=== PATIENT | male | born 1940 | race Caucasian/White ===

== ENCOUNTER 2016-09-20 19:16 | Emergency (ER) | payer MEDICARE, OTHER ==
[2016-09-20 19:27] VITALS: BP 135/69
--- NOTE | 2016-09-20 20:20 | ED Physician Documentation ---
History of Present Illness - Stated complaint Stated Complaint: LT LE PAIN - Chief complaint Chief Complaint: Ext Problem - History obtained from History obtained from: Patient - History of Present Illness Timing: Enter time (17:30), Today Pain level max: 8 (initially) Pain level now: 0 (at rest) Radiates to: no radiation Improved by: rest Worsened by: weight-bearing - Additonal information Additional information: sudden onset left leg pain proximal to knee, onset while standing in kitchen but without specific inciting event. 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 denies: Back pain, Joint pain, Extremity swelling, Joint swelling Neurologic: denies: Focal weakness, Numbness PD PAST MEDICAL HISTORY - Past Medical History Cardiovascular: Deep vein thrombosis, Other Respiratory: Asthma, Other Neuro: None Endocrine/Autoimmune: None GI: None : Other HEENT: None Psych: Claustrophobia Musculoskeletal: Osteoarthritis Derm: None - Past Surgical History Past Surgical History: Yes General: Appendectomy, Colonoscopy Ortho: Hip replacement HEENT: Tonsil/Adenoidectomy - Present Medications Home Medications: Ambulatory Orders Medication Instructions Recorded Confirmed Fluticasone 44 Mcg [Flovent] 2 puffs INH BID 12/07/12 04/01/15 Ipratropium/Albuterol Inhaler 1 puffs INH QID PRN 12/07/12 04/01/15 [Combivent Inhaler] Montelukast Sodium [Singulair] 10 mg PO DAILY 12/07/12 04/01/15 - Allergies Allergies/Adverse Reactions: Allergies Allergy/AdvReac Type Severity Reaction Status Date / Time No Known Drug Allergies Allergy Verified 09/20/16 19:27 - Social History Does the pt smoke?: No Smoking Status: Never smoker Does the pt drink ETOH?: Yes Does the pt have substance abuse?: No - Immunizations Immunizations are current?: Yes - POLST Patient has POLST: No PD ED PE NORMAL - Vitals Vital signs reviewed: Yes - General General: Alert and oriented X 3, No acute distress, Well developed/nourished - Derm Derm: Normal color, Warm and dry, No rash - Extremities Extremities: No tenderness to palpate, Normal ROM s pain, No edema, No calf tenderness / cord, Other (2+ left DP and PT pulses. Brisk capillary refill left toes with LTS intact, normal tactile temperature of the left foot. Left leg including calf, thigh, and knee, are without tenderness, erythema, or swelling. FROM left knee without discomfort or difficulty. ) - Neuro Neuro: No motor deficit (5/5 strength left dorsi/plantar flexion and left knee extension/ flexion), No sensory deficit Results - Vitals Vitals: Vital Signs - 24 hr 09/20/16 19:23 Temperature 36.8 C Heart Rate 65 Respiratory 14 Rate Blood Pressure 135/69 H O2 Saturation 98 Oxygen O2 Source [] Room air O2 Source Room air - Rads (name of study) LLE venous doppler US Radiology: Prelim report reviewed, See rad report PD MEDICAL DECISION MAKING - ED course Complexity details: reviewed old records, reviewed results, re-evaluated patient , considered differential, d/w patient ED course: declined pain medication, both in ED and as rx Departure - Departure Disposition: 01 Home, Self Care Clinical Impression: Pain of lower extremity Condition: Good Instructions: ED Acute Pain [facility] Follow-Up: AVERY COLUNGA MD [Primary Care Provider] - Within 3 Days Discharge Date/Time: 09/20/16 22:10
--- NOTE | 2016-09-20 21:47 | Ultrasound Preliminary Report ---
Exam: US Duplex Ext Veins Left IMPRESSION: No evidence for deep venous thrombosis. [facility] SITE ID: [id number]
--- NOTE | 2016-09-20 23:38 | Ultrasound Report ---
EXAM: LEFT LOWER EXTREMITY VENOUS ULTRASOUND EXAM DATE: 09/20/2016 09:32 PM. CLINICAL HISTORY: Left lower extremity pain, history of DVT (right lower extremity). COMPARISON: None. TECHNIQUE: Real-time sonographic vascular imaging was performed by the bmx rider through the lower extremity utilizing both color-flow and Doppler spectral analysis. Multiple workforce services representative static mara ges were saved for review. FINDINGS: Common Femoral Vein (CFV): Normal. CFV-GSV Junction: Normal. Profunda Femoral Vein (PFV): Normal. Femoral Vein (FV) Prox: Normal. Femoral Vein (FV) Mid: Normal. Femoral Vein (FV) Dist: Normal. Popliteal Vein: Normal. Posterior Tibial Veins: Normal. Peroneal Veins: Normal. Contralateral Side CFV: Normal. Other: None. IMPRESSION: No evidence for deep venous thrombosis. [facility] Referring Provider Line: [phone] SITE ID: [id number]
== END 2016-09-20 22:10 | disposition home or self-care (01) ==
LOC: ED 19:16
DX: M79.605 Pain in left leg (principal); Z86.718 Personal history of other venous thrombosis and embolism; J45.909 Unspecified asthma, uncomplicated; M19.90 Unspecified osteoarthritis, unspecified site
CPT/HCPCS: 99283

== ENCOUNTER 2017-02-03 08:00 | Outpatient (CLI) | payer MEDICARE, OTHER ==
[2017-02-03 16:06] LABS: BASOPHILS % (AUTO) 0.7 %; EOSINOPHILS # (AUTO) 0.1 10^3/uL (0.0-0.7); EOSINOPHILS % (AUTO) 2.1 %; HCT - HEMATOCRIT 46.2 % (42.0-52.0); HGB - HEMOGLOBIN 15.4 g/dL (14.0-18.0); LYMPHOCYTES % (AUTO) 30.4 %; MEAN CORPUSCULAR HEMOGLOBIN 30.5 pg (27.0-31.0); MEAN CORPUSCULAR HGB CONC 33.4 g/dL (32.0-36.0); MEAN CORPUSCULAR VOLUME 91.3 fL (80.0-94.0); MEAN PLATELET VOLUME 9.4 fL (7.4-11.4); MONOCYTES # (AUTO) 0.6 10^3/uL (0.0-1.0); MONOCYTES % (AUTO) 8.7 %; NEUTROPHILS # (AUTO) 3.9 10^3/uL (1.5-6.6); NEUTROPHILS % (AUTO) 58.1 %; NUCLEATED RED BLOOD CELLS AUTO 0.1 /100WBC; RED BLOOD COUNT 5.06 10^6/uL (4.70-6.10); RED CELL DISTRIBUTION WIDTH 14.2 % (12.0-15.0); UNCORRECTED WHITE BLOOD COUNT 6.7 x10^3/uL; WHITE BLOOD COUNT 6.7 x10^3/uL (4.8-10.8)
[2017-02-03 17:02] LABS: ALBUMIN/GLOBULIN RATIO 1.5 (1.0-2.2); BILIRUBIN,TOTAL 0.8 mg/dL (0.2-1.0); BUN - BLOOD UREA NITROGEN 26 mg/dL (6-20); CALCIUM 9.8 mg/dL (8.5-10.3); CARBON DIOXIDE - CO2 25 mmol/L (21-32); CHLORIDE 107 mmol/L (101-111); CHOL/HDL RATIO 3.5 (<5.0); CHOLESTEROL 186 mg/dL; CREATININE 0.9 mg/dL (0.6-1.2); GFR - MDRD 82 (>89); GLUCOSE 101 mg/dL (70-100); HDL CHOLESTEROL 53 mg/dL; LDL/HDL RATIO 2.2 (<3.6); POTASSIUM 4.3 mmol/L (3.5-5.0); SODIUM 138 mmol/L (135-145); TRIGLYCERIDES 90 mg/dL; VLDL CHOLESTEROL 18 mg/dL
== END 2017-02-03 08:01 | disposition home or self-care (01) ==
LOC: LAB.WCP 08:00
PROVIDERS: ATTEND Family Medicine
DX: Z00.00 Encounter for general adult medical examination without abnormal findings (principal); Z13.220 Encounter for screening for lipoid disorders; Z79.899 Other long term (current) drug therapy; Z12.5 Encounter for screening for malignant neoplasm of prostate
CPT/HCPCS: 36415; 80053; 80061; 85025; G0103; 84153

== ENCOUNTER 2017-03-11 12:41 | Emergency (ER) | payer MEDICARE, OTHER ==
[2017-03-11 14:01] LABS: BASOPHILS # (AUTO) 0.1 10^3/uL (0.0-0.1); BASOPHILS % (AUTO) 0.7 %; EOSINOPHILS % (AUTO) 0.6 %; LYMPHOCYTES # (AUTO) 1.9 10^3/uL (1.5-3.5); LYMPHOCYTES % (AUTO) 22.6 %; MEAN CORPUSCULAR HEMOGLOBIN 30.7 pg (27.0-31.0); MEAN CORPUSCULAR HGB CONC 34.2 g/dL (32.0-36.0); MEAN CORPUSCULAR VOLUME 89.7 fL (80.0-94.0); MEAN PLATELET VOLUME 8.5 fL (7.4-11.4); MONOCYTES % (AUTO) 12.5 %; NEUTROPHILS # (AUTO) 5.3 10^3/uL (1.5-6.6); NEUTROPHILS % (AUTO) 63.6 %; PLT - PLATELET COUNT 188 10^3/uL (130-450); RED BLOOD COUNT 5.52 10^6/uL (4.70-6.10); RED CELL DISTRIBUTION WIDTH 14.2 % (12.0-15.0); WHITE BLOOD COUNT 8.3 x10^3/uL (4.8-10.8)
[2017-03-11 14:16] LABS: ALBUMIN 4.4 g/dL (3.2-5.5); ALBUMIN/GLOBULIN RATIO 1.4 (1.0-2.2); BILIRUBIN,TOTAL 0.7 mg/dL (0.2-1.0); CALCIUM 9.8 mg/dL (8.5-10.3); TOTAL PROTEIN 7.6 g/dL (6.7-8.2)
--- NOTE | 2017-03-11 14:20 | ED Physician Documentation ---
History of Present Illness - Stated complaint Stated Complaint: STOMACH PAINS - Chief complaint Chief Complaint: Abd Pain - Additonal information Additional information: hx from pt 76 male s/p appy and hernia repairs X many 2-3 days of diffuse abd pain severe yesterday better but not gone this AM now severe again no fever + NV no diarrhea no bloody BM last BM this AM always has urinary hesitancy after many hernia surgeries no back or chest pain Review of Systems Constitutional: denies: Fever, Chills Cardiac: denies: Chest pain / pressure Respiratory: denies: Dyspnea GI: reports: Abdominal Pain, Nausea, Vomiting. denies: Diarrhea : reports: Hesitancy Musculoskeletal: denies: Back pain Endocrine: denies: Easy bruising / bleeding Immunocompromised: denies: Immunocompromised PD PAST MEDICAL HISTORY - Past Medical History Cardiovascular: Deep vein thrombosis, Other Respiratory: Asthma, Other Neuro: None Endocrine/Autoimmune: None GI: None : Other HEENT: None Psych: Claustrophobia Musculoskeletal: Osteoarthritis Derm: None - Past Surgical History Past Surgical History: Yes General: Appendectomy, Colonoscopy Ortho: Hip replacement HEENT: Tonsil/Adenoidectomy - Present Medications Home Medications: Ambulatory Orders Medication Instructions Recorded Confirmed Fluticasone 44 Mcg [Flovent] 2 puffs INH BID 12/07/12 04/01/15 Ipratropium/Albuterol Inhaler 1 puffs INH QID PRN 12/07/12 04/01/15 [Combivent Inhaler] Montelukast Sodium [Singulair] 10 mg PO DAILY 12/07/12 04/01/15 - Allergies Allergies/Adverse Reactions: Allergies Allergy/AdvReac Type Severity Reaction Status Date / Time No Known Drug Allergies Allergy Verified 09/20/16 19:27 - Social History Does the pt smoke?: No Smoking Status: Never smoker Does the pt drink ETOH?: Yes Does the pt have substance abuse?: No - Immunizations Immunizations are current?: Yes - POLST Patient has POLST: No PD ED PE NORMAL - Vitals Vital signs reviewed: Yes - Neck Neck: Supple, no meningeal sign - Cardiac Cardiac: RRR - Respiratory Respiratory: No respiratory distress, Clear bilaterally - Abdomen Abdomen: Other (+ BS, protuberant but baseline per pt, reducible ventral hernia , diffuse TTP but not peritoneal) - Back Back: No CVA TTP - Derm Derm: Normal color - Neuro Neuro: Alert and oriented X 3 Results - Vitals Vitals: Vital Signs - 24 hr 03/11/17 03/11/17 03/11/17 12:47 14:01 15:23 Temperature 36.1 C L 36.5 C Heart Rate 69 68 66 Respiratory 18 15 15 Rate Blood Pressure 135/75 H 132/66 H 153/76 H O2 Saturation 96 96 99 03/11/17 17:35 Temperature 36.4 C L Heart Rate 63 Respiratory 15 Rate Blood Pressure 119/70 O2 Saturation 97 Oxygen O2 Source [With Activity] Room air O2 Source Room air - Labs Labs: Laboratory Tests 03/11/17 03/11/17 03/11/17 13:58 13:58 13:58 WBC 8.3 RBC 5.52 Hgb 17.0 Hct 49.5 MCV 89.7 MCH 30.7 MCHC 34.2 RDW 14.2 Plt Count 188 MPV 8.5 Neut # 5.3 Lymph # 1.9 [place] # 1.0 Eos # 0.0 Baso # 0.1 Absolute Nucleated RBC 0.01 Nucleated RBC % 0.1 Sodium 140 Potassium 3.8 Chloride 105 Carbon Dioxide 29 Anion Gap 6.0 BUN 28 H Creatinine 1.0 Estimated GFR (MDRD) 72 L Glucose 116 H Calcium 9.8 Total Bilirubin 0.7 AST 28 ALT 27 Alkaline Phosphatase 66 Troponin I < 0.04 Total Protein 7.6 Albumin 4.4 Globulin 3.2 Albumin/Globulin Ratio 1.4 Lipase 20 L Urine Color Urine Clarity Urine pH Ur Specific [place] Urine Protein Urine Glucose (UA) Urine Ketones Urine Occult Blood Urine Nitrite Urine Bilirubin Urine Urobilinogen Ur Leukocyte Esterase Ur Microscopic Review Urine Culture Comments 03/11/17 15:45 WBC RBC Hgb Hct MCV MCH MCHC RDW Plt Count MPV Neut # Lymph # [place] # Eos # Baso # Absolute Nucleated RBC Nucleated RBC % Sodium Potassium Chloride Carbon Dioxide Anion Gap BUN Creatinine Estimated GFR (MDRD) Glucose Calcium Total Bilirubin AST ALT Alkaline Phosphatase Troponin I Total Protein Albumin Globulin Albumin/Globulin Ratio Lipase Urine Color YELLOW Urine Clarity CLEAR Urine pH 6.0 Ur Specific [place] >=1.030 H Urine Protein NEGATIVE Urine Glucose (UA) NEGATIVE Urine Ketones NEGATIVE Urine Occult Blood NEGATIVE Urine Nitrite NEGATIVE Urine Bilirubin NEGATIVE Urine Urobilinogen 0.2 (NORMAL) Ur Leukocyte Esterase NEGATIVE Ur Microscopic Review NOT INDICATED Urine Culture Comments NOT INDICATED - Rads (name of study) CT AP Radiology: See rad report (mild diverticulosis no -itis, no perf, no SBO, no AAA , L renal cyst, non obstructing renal calculi, nl ureters) PD MEDICAL DECISION MAKING - ED course ED course: waxing and waning fairly diffuse and generalized in a 76 male with a reducible ventral hernia but otherwise non peritineal exam, nl labs and a neg CT (no perf SBO infection AAA urteral stones etc no hx afib, hx DVT, but pain is mild to mod (rates it a 3-5 per NN) so not pain out of proportion and CT in not an angio but does not suggest mesenteric ischemia so unfortunately do not know what is causing the pain in a 76 y/o this is concerning but given the reassuring work up i think it is reasonable to let him go home with close fup unfortunately this is a holiday weekend so close fup is difficult to obtain will have pt come back to see me if still having sx tomorrow Departure - Departure Disposition: 01 Home, Self Care Clinical Impression: Abdominal pain Qualifiers: Abdominal location: generalized Qualified Code(s): R10.84 - Generalized abdominal pain Condition: Good Instructions: ED Abdominal Pain Unkn Cause Comments: The good news is that all your tests came back fine. Your blood work including kidney liver and pancreas function was fine. The urine did not show any infection. The CT scan did not show an aneurysm, a bowel infection/blockage/perforation, internal bleeding, and although there were some stones in the kidney none were actively passing to the bladder to explain the pain The bad news is that I am still not sure what is causing the pain But given the extensive and reassuring workup, I do not think you need surgery or admission or antibiotics at this time I think it is safe for you to go home for tonight It is very possible that over time, new or changing symptoms may develop that lead to a diagnosis not presently apparent. That is why close follow up in this type of situation is very important. Unfortunately this is a holiday weekend so close follow up with your PMD is not possible. So I would like you to please come back and see me tomorrow morning - unless you are feeling much better in which case please call me to let me know I have prescribed some medication to ease stomach pain - I do not want to prescribe anything very strong because I do not want to mask worsening symptoms
[2017-03-11 15:55] LABS: BILIRUBIN,URINE NEGATIVE (NEGATIVE); GLUCOSE, URINE (UA) NEGATIVE (NEGATIVE); KETONES,URINE (UA) NEGATIVE (NEGATIVE); LEUKOCYTE ESTERASE, URINE NEGATIVE (NEGATIVE); NITRITE,URINE NEGATIVE (NEGATIVE); OCCULT BLOOD,URINE NEGATIVE (NEGATIVE); PROTEIN,URINE NEGATIVE (NEGATIVE); UROBILINOGEN,URINE 0.2 (NORMAL) E.U./dL (NORMAL)
[2017-03-11 15:57] LABS: CLARITY,URINE CLEAR (CLEAR)
--- NOTE | 2017-03-11 16:08 | CT Report ---
EXAM: CT ABDOMEN AND PELVIS EXAM DATE: 03/11/2017 03:42 PM. CLINICAL HISTORY: Diffuse abdomen pain. Vomiting. COMPARISONS: None. TECHNIQUE: Routine helical CT imaging was performed through the abdomen and pelvis. IV contrast: None . Enteric contrast: No. Reconstructions: Coronal and sagittal. In accordance with CT protocol optimization, one or more of the following dose reduction techniques w ere utilized for this exam: automated exposure control, adjustment of mA and/or KV based on patient s ize, or use of iterative reconstructive technique. FINDINGS: Lung Bases: Aortic and coronary artery calcification noted, otherwise unremarkable.. Liver: Normal. No masses. Gallbladder/Bile Ducts: Unremarkable. Spleen: Normal. Pancreas: Normal. Adrenal Glands: Normal. Kidneys: Lower 3.8 cm cyst and nonobstructing 0.7 cm calcification on the left, otherwise unremarkabl e unenhanced kidneys and ureters. Peritoneal Cavity/Bowel: Mild diverticulosis. No free fluid, free air or adenopathy. No masses or acu te inflammatory process. Nonvisualized appendix. Pelvic Organs: Detail obscured by metal artifact. Prosthetic calcifications noted. Visualized bladder appears unremarkable. Vasculature: No aneurysms or other significant abnormality. Bones: Anterior bridging of the sacroiliac joints noted. Bilateral hip arthroplasties noted. Other: None. IMPRESSION: 1. Mild diverticulosis without diverticulitis or other acute bowel abnormality. 2. Left renal cyst and nonobstructing intrarenal calculus, otherwise unremarkable unenhanced kidneys and ureters. [facility] Referring Provider Line: [phone] SITE ID: [id number]
[2017-03-11] MEDS ORDERED: DICYCLOMINE 10 MG CAPSULE PO STA (19:02)
[2017-03-11 19:08] VITALS: BP 147/73
== END 2017-03-11 19:13 | disposition home or self-care (01) ==
LOC: ED 12:41
DX: R10.84 Generalized abdominal pain (principal); Z86.718 Personal history of other venous thrombosis and embolism
CPT/HCPCS: 36415; 74176; 80053; 81003; 83690; 84484; 85025; 99283; 99284; A9270; 81001; 87086

== ENCOUNTER 2017-03-12 15:31 | Observation (INO) | payer MEDICARE, OTHER ==
[2017-03-12] MEDS ORDERED: SODIUM CHLORIDE 0.9% 1,000 ML IV ONE ×2 (16:03→20:44)
[2017-03-12] MEDS ORDERED: MORPHINE 2 MG/ML SYRINGE IVP STA (16:16)
[2017-03-12 16:27] LABS: BASOPHILS % (AUTO) 0.5 %; EOSINOPHILS # (AUTO) 0.1 10^3/uL (0.0-0.7); HGB - HEMOGLOBIN 16.2 g/dL (14.0-18.0); LYMPHOCYTES % (AUTO) 24.3 %; MEAN CORPUSCULAR HEMOGLOBIN 30.2 pg (27.0-31.0); MEAN CORPUSCULAR HGB CONC 33.5 g/dL (32.0-36.0); MEAN CORPUSCULAR VOLUME 90.1 fL (80.0-94.0); MEAN PLATELET VOLUME 8.8 fL (7.4-11.4); MONOCYTES # (AUTO) 0.7 10^3/uL (0.0-1.0); MONOCYTES % (AUTO) 8.3 %; NEUTROPHILS # (AUTO) 5.5 10^3/uL (1.5-6.6); NEUTROPHILS % (AUTO) 65.9 %; PLT - PLATELET COUNT 195 10^3/uL (130-450); RED BLOOD COUNT 5.35 10^6/uL (4.70-6.10); RED CELL DISTRIBUTION WIDTH 13.9 % (12.0-15.0); WHITE BLOOD COUNT 8.3 x10^3/uL (4.8-10.8)
--- NOTE | 2017-03-12 16:29 | ED Physician Documentation ---
History of Present Illness - Stated complaint Stated Complaint: ABD PX - Chief complaint Chief Complaint: Abd Pain - Additonal information Additional information: hx from pt 76 male seen by yesterday for generalized abd pain pshx hernia repair X many and appy exam notable for diffuse TTP s peritoneal sx and a reducible ventral hernia labs and non con CT neg and pt with only mild to mod pain dc with precautions and asked to return if worse was better this AM, filled his bentyl, doing well until he ate (oatmeal and banana) and then pain returned - more severe than yesterday and localized to upper abd no fever chills no NVD no bloody BM no urinary sx Review of Systems Constitutional: denies: Fever, Chills Cardiac: denies: Chest pain / pressure Respiratory: denies: Dyspnea GI: reports: Abdominal Pain. denies: Nausea, Vomiting, Diarrhea : denies: Dysuria Musculoskeletal: denies: Back pain Endocrine: denies: Easy bruising / bleeding Immunocompromised: denies: Immunocompromised PD PAST MEDICAL HISTORY - Past Medical History Cardiovascular: Deep vein thrombosis, Other Respiratory: Asthma, Other Neuro: None Endocrine/Autoimmune: None GI: None : Other HEENT: None Psych: Claustrophobia Musculoskeletal: Osteoarthritis Derm: None - Past Surgical History Past Surgical History: Yes General: Appendectomy, Colonoscopy Ortho: Hip replacement HEENT: Tonsil/Adenoidectomy - Present Medications Home Medications: Ambulatory Orders Medication Instructions Recorded Confirmed Fluticasone 44 Mcg [Flovent] 2 puffs INH BID 12/07/12 03/12/17 Ipratropium/Albuterol Inhaler 1 puffs INH QID PRN 12/07/12 03/12/17 [Combivent Inhaler] Montelukast Sodium [Singulair] 10 mg PO DAILY 12/07/12 03/12/17 Dicyclomine [Bentyl] 10 mg PO Q8H PRN #20 capsule 03/11/17 03/12/17 - Allergies Allergies/Adverse Reactions: Allergies Allergy/AdvReac Type Severity Reaction Status Date / Time No Known Drug Allergies Allergy Verified 03/12/17 15:39 - Social History Does the pt smoke?: No Smoking Status: Never smoker Does the pt drink ETOH?: Yes Does the pt have substance abuse?: No - Immunizations Immunizations are current?: Yes - POLST Patient has POLST: No PD ED PE NORMAL - Vitals Vital signs reviewed: Yes - General General: Alert and oriented X 3 - HEENT HEENT: PERRL - Neck Neck: Supple, no meningeal sign - Cardiac Cardiac: RRR - Respiratory Respiratory: No respiratory distress, Clear bilaterally - Abdomen Abdomen: Soft, Other (protuberant, + BS, soft, sig TTP upper abd and today more focal ruq pain with + murphys, no lower abd TTP) - Derm Derm: Normal color - Extremities Extremities: No deformity - Neuro Neuro: Alert and oriented X 3 Results - Vitals Vitals: Vital Signs - 24 hr 03/12/17 03/12/17 15:36 16:01 Temperature 36.0 C L 36.5 C Heart Rate 71 71 Respiratory 16 16 Rate Blood Pressure 179/65 H 143/88 H O2 Saturation 97 97 Oxygen O2 Source [] Room air O2 Source Room air - Labs Labs: Laboratory Tests 03/12/17 03/12/17 16:20 16:20 WBC 8.3 RBC 5.35 Hgb 16.2 Hct 48.2 MCV 90.1 MCH 30.2 MCHC 33.5 RDW 13.9 Plt Count 195 MPV 8.8 Neut # 5.5 Lymph # 2.0 [place] # 0.7 Eos # 0.1 Baso # 0.0 Absolute Nucleated RBC 0.00 Nucleated RBC % 0.0 Sodium 136 Potassium 3.7 Chloride 101 Carbon Dioxide 27 Anion Gap 8.0 BUN 29 H Creatinine 0.9 Estimated GFR (MDRD) 82 L Glucose 107 H Calcium 9.6 Total Bilirubin 0.8 AST 30 ALT 27 Alkaline Phosphatase 64 Total Protein 7.7 Albumin 4.3 Globulin 3.4 Albumin/Globulin Ratio 1.3 Lipase 17 L - Rads (name of study) CTA AP Radiology: Other (dilated small bowel transition distal small bowel c/w SBO likely 2/2 adhesions, small < 2 cm saccular AAA, mod stenosis inferior mesenteric artery, diverticulosis) abd sono Radiology: See rad report (1.4 cm stone in neck of gallbladder, mild wall thickening, no pericholecystic fluid, per tech neg sono murphys (had MSO4 and def had RUQ TTP on my exam), fatty liver, nl ducts) PD MEDICAL DECISION MAKING - ED course ED course: yesterday with milder pain and a non diagnostic work up was advised that sx may currency exchange specialist time and lead to dx not initially apparent, dc'ed with precautions and to come back and see me for a recheck returned as requested and todays work up shows both an SBO and a GB neck stone with some wall thickening but no fever nl LFTs nl WBC (and small AAA and diverticulosis and slight stenosis of inf mesenteric artery and a fatty liver - pt and advised of all findings and need for serial AAA sonos by PMD) seen by surgeon Dr Rollins who admit to obs Departure - Departure Disposition: ED Place in Observation Clinical Impression: SBO (small bowel obstruction) Gallstone Qualifiers: Cholecystitis presence: without cholecystitis Biliary obstruction: without biliary obstruction Qualified Code(s): K80.20 - Calculus of gallbladder without cholecystitis without obstruction Condition: Good
[2017-03-12] MEDS ORDERED: IOPAMIDOL-300 100 ML VIAL ONE (16:37)
[2017-03-12 16:40] LABS: ALBUMIN 4.3 g/dL (3.2-5.5); ALBUMIN/GLOBULIN RATIO 1.3 (1.0-2.2); BILIRUBIN,TOTAL 0.8 mg/dL (0.2-1.0); CALCIUM 9.6 mg/dL (8.5-10.3); CREATININE 0.9 mg/dL (0.6-1.2); TOTAL PROTEIN 7.7 g/dL (6.7-8.2)
[2017-03-12] MEDS ORDERED: IOPAMIDOL-300 100 ML VIAL IVP ONE (17:14)
--- NOTE | 2017-03-12 17:16 | Ultrasound Preliminary Report ---
Exam: US ABDOMEN LIMITED IMPRESSION: 1. Cholelithiasis. No inflammation to suggest acute cholecystitis. 2. Heterogeneous, probably fatty liver. No mass or intervertebral duct dilation. 3. Normal common bile duct and pancreas. Comment: Study limited due to body habitus. [facility] SITE ID: [id number]
--- NOTE | 2017-03-12 17:31 | Ultrasound Report ---
EXAM: ABDOMEN ULTRASOUND LIMITED, RUQ EXAM DATE: 03/12/2017 05:02 PM. CLINICAL HISTORY: Abdominal pain after eating. COMPARISON: 03/11/2017 CT abdomen and pelvis. TECHNIQUE: Real-time scanning was performed with static images obtained. FINDINGS: Liver: Not well evaluated due to body habitus. No mass or intrahepatic bile duct dilation. Heterogene ous liver. No mass or intrahepatic bile duct dilation. 15.7 cm. Main portal vein flow: Hepatopetal. Gallbladder: 1.4 cm stone in the gallbladder neck. Mild gallbladder wall thickening. No pericholecyst ic fluid. Per report, patient and a negative sonographic Awan's sign. Biliary System: CBD measures 7 mm. No intrahepatic or extrahepatic ductal dilatation. Pancreas: Echogenic. No mass, pancreatic ductal dilation or atrophy or abnormal calcifications. Right kidney: 10.8 cm. No hydronephrosis. Incidental 1.3 x 1 cm simple cortical cyst. Other: Study limited due to body habitus. IMPRESSION: 1. Cholelithiasis. No inflammation to suggest acute cholecystitis. 2. Heterogeneous, probably fatty liver. No mass or intrahepatic bile duct dilation. 3. Normal common bile duct and pancreas. Comment: Study limited due to body habitus. [facility] Referring Provider Line: [phone] SITE ID: [id number]
--- NOTE | 2017-03-12 17:44 | CT Report ---
EXAM: CT ANGIOGRAM ABDOMEN AND PELVIS WITH CONTRAST EXAM DATE: 03/12/2017 05:13 PM. CLINICAL HISTORY: Severe abdominal pain, worse with eating. COMPARISONS: Abdomen and pelvis CT 03/11/[address] 04/28/2013. TECHNIQUE: Routine helical CT angiogram imaging was performed through the abdomen and pelvis in the a rterial phase. IV contrast: 100 cc Isovue-300. Enteric contrast: No. Reconstructions: Coronal, sagitt al, and 3D MIP reconstructions. In accordance with CT protocol optimization, one or more of the following dose reduction techniques w ere utilized for this exam: automated exposure control, adjustment of mA and/or KV based on patient s ize, or use of iterative reconstructive technique. FINDINGS: Vasculature: Included portions of the thoracic aorta and pulmonary artery are unremarkable. Moderate coronary atherosclerosis. There is a small saccular infrarenal aortic aneurysm measuring 16 x 9 mm ex tending anteriorly. The bilateral common iliac, internal and external iliac arteries are normal in ca liber with moderate atherosclerotic calcification noted. Mild atherosclerosis at the origin of the ce liac artery. Mild atherosclerosis super mesenteric artery. Moderate stenosis at the origin of the inf erior mesenteric artery. No significant renal artery stenosis. Accessory left hepatic artery arises f rom the left gastric artery. Lung Bases: 6 mm pulmonary nodule right lower lobe anterior segment, stable compared to the prior exa mination. Underlying centrilobular emphysema with areas of diskoid atelectasis. Stable left lower lob e pulmonary nodule measuring 5 mm. Abdominal Solid Organs: The liver, spleen, adrenal glands are unremarkable. Mild pancreatic atrophy. Gallbladder unremarkable. No hydronephrosis with left renal cyst measuring 3.9 cm. Nonobstructing nep hrolithiasis on the left measuring up to 8 mm. Peritoneal Cavity: Moderately dilated loops of small bowel with transition in the right lower quadran t and decompressed distal small bowel consistent with a small bowel obstruction. Underlying colonic d iverticulosis without focal inflammation. Pelvic Organs: The bladder is unremarkable. Surgical clips in the right lower quadrant in the right i nguinal region. Evaluation of the pelvis is somewhat limited due to beam hardening artifact from the hip replacements. Bones: Status post bilateral total hip replacements. Other: None. IMPRESSION: 1. Dilated small bowel with transition at the mid to distal small bowel consistent with a small bowel obstruction. Underlying etiology is likely adhesions. 2. Small saccular abdominal aortic aneurysm extending anteriorly measuring 16 x 9 mm. 3. 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 4. Mild diverticulosis without kristina diverticulitis. [facility] Referring Provider Line: [phone] SITE ID: [id number]
[2017-03-12] MEDS ORDERED: SODIUM CHLORIDE FLUSH 0.9% 10 ML SYRINGE IVP PRN (18:31)
[2017-03-12] MEDS ORDERED: HYDROmorphone 1 MG/ML SYRINGE IVP PRN (18:31)
[2017-03-12] MEDS ORDERED: ONDANSETRON 4 MG/2 ML VIAL IVP PRN (18:36)
[2017-03-12] MEDS: SODIUM CHLORIDE 0.9% 1,000 ML IV SCH (20:43)
[2017-03-12] MEDS ORDERED: FLUTICASONE NASAL SPRAY NAS ONE (20:44)
[2017-03-12] MEDS ORDERED: MONTELUKAST 10 MG TABLET PO SCH (21:00)
[2017-03-12] MEDS ORDERED: FLUTICASONE HFA 44 MCG INHALER INH SCH (21:00)
[2017-03-12] MEDS: HEPARIN 5,000 UNIT/ML VIAL SUBQ SCH (21:15)
[2017-03-12] MEDS: SODIUM CHLORIDE FLUSH 0.9% 10 ML SYRINGE IVP SCH (22:56)
--- NOTE | 2017-03-13 06:17 | XRAY Report ---
EXAM: ABDOMINAL SERIES AND PA CHEST EXAM DATE: 03/13/2017 05:44 AM. CLINICAL HISTORY: Abdominal pain. COMPARISON: Chest, 04/27/2013. TECHNIQUE: 2 views abdomen and 1 view chest. FINDINGS: CHEST: Lungs/Pleura: Elevated right hemidiaphragm. Mild bibasilar atelectasis or infiltrate. No pleural effu farzana. No pneumothorax. Mediastinum: Within exam limitations, cardiomediastinal contour is normal. ABDOMEN: Bowel Gas Pattern: Nonspecific. Borderline caliber small bowel loops with air-fluid levels. Moderate stool in the colon with some colonic air-fluid levels as well. Free Air: None. Other: Excreted contrast in the urinary bladder. Bilateral hip prostheses. Left renal stone. IMPRESSION: 1. Nonspecific gas pattern with some small bowel and colonic air-fluid levels. Borderline caliber sma ll bowel loops. 2. Bibasilar atelectasis or less likely infiltrate. 3. Left renal stone. [facility] Referring Provider Line: [phone] SITE ID: [id number]
--- NOTE | 2017-03-13 06:17 | XRAY Preliminary Report ---
Exam: XR ABDOMEN ACUTE IMPRESSION: 1. Nonspecific gas pattern with some small bowel and colonic air-fluid levels. Borderline caliber sma ll bowel loops. 2. Bibasilar atelectasis or less likely infiltrate. 3. Left renal stone. [facility] SITE ID: [id number]
[2017-03-13] MEDS: HEPARIN 5,000 UNIT/ML VIAL SUBQ SCH ×2 (06:36→13:38)
[2017-03-13] MEDS: SODIUM CHLORIDE 0.9% 1,000 ML IV SCH (06:40)
[2017-03-13] MEDS: SODIUM CHLORIDE FLUSH 0.9% 10 ML SYRINGE IVP SCH ×2 (06:49→13:38)
[2017-03-13] MEDS ORDERED: IPRATROPIUM/ALBUTEROL 3 ML NEB INH PRN (07:04)
[2017-03-13] MEDS ORDERED: BUDESONIDE 0.5 MG/2 ML NEB INH SCH (08:00)
[2017-03-13] MEDS ORDERED: SOAP SUDS ENEMA 1 EACH RC ONE (10:58)
[2017-03-13] MEDS ORDERED: LACTULOSE 10 GM /15 ML UDC PO SCH (11:00)
[2017-03-13 15:26] VITALS: BP 139/58
--- NOTE | 2017-03-13 16:14 | Discharge Plan ---
Discharge Plan Disposition: 01 Home, Self Care Condition: Stable Diet: Regular Activity Restrictions: No Restrictions Shower Restrictions: No Driving Restrictions: No Weight Bearing: Full Weight Additional Instructions or Follow Up instructions: Colace 100mg tablets twice a day Return to ER if severe abdominal pain returns No Smoking: If you smoke, Please STOP! Call for help. Follow-up with: Jere Goldstein MD [Primary Care Provider] - 2 Weeks
--- NOTE | 2017-03-13 23:59 | PROVIDER PROGRESS NOTE ---
Subjective - General Admit Date: 03/12/17 - Review of Systems Gastrointestinal: positive: Other (abdominal pain improved after having a bowel movement but having some mild bloating on the left side.) Objective - Patient Data Weight: Weight 03/11/17 03/12/17 03/13/17 23:59 23:59 23:59 Weight (kg) 90.718 kg Intake & Output: Intake and Output Totals x24h 03/11/17 03/12/17 03/13/17 23:59 23:59 23:59 Intake Total 1000 3000 Balance 1000 3000 - Lab Results Lab Results: 03/12/17 16:20 03/12/17 16:20 - Physical Exam Abdomen: positive: Non-tender Impression/Plan - Problem List Problem List: abdominal pain possibly related to partial small bowel obstruction seen on ct scan vs constipation seen on Acute abdominal series. He was given several enemas along with lactulose early today having several bowel movements. He abdominal pain has pretty much resolved with only c/o some bloating in the llq. Will d/c home today. Last colonoscopy was 4 years ago with next one due in 1 years. Recommend fiber, stool softners. Return if pain returns. F/u with PCP in 2 weeks.
--- NOTE | 2017-03-27 09:39 | HISTORY & PHYSICAL EXAMINATION ---
DATE OF SERVICE: Physician: Jkae Rollins MD REASON FOR ADMISSION: Abdominal pain. DATE OF ADMISSION: [ADMIT DATE] 03/12/2017 HISTORY OF PRESENT ILLNESS: The patient is a 76-year-old male who presents with abdominal pain. Because of the pain he came to the emergency room to be evaluated. He denied any nausea or vomiting. He has been having bowel movement up until yesterday. The patient's pain has become more severe and therefore came to the emergency room. PAST MEDICAL HISTORY 1. Asthma. 2. Deep vein thrombosis. PAST SURGICAL HISTORY 1. Appendectomy. 2. Multiple abdominal surgeries for ventral hernia. 3. Tonsillectomy, adenoidectomy. MEDICATIONS 1. Flovent. 2. Combivent. 3. Singulair. 4. Bentyl. ALLERGIES TO MEDICATIONS: NONE. HABITS: The patient socially uses alcohol. Denies any current smoking or drug use. FAMILY HISTORY: Noncontributory. SOCIAL HISTORY: The patient is . REVIEW OF SYSTEMS PULMONARY: No shortness of breath. GASTROINTESTINAL: No abdominal pain. A 12-point review of systems was obtained with pertinent positives discussed and all others being negative. PHYSICAL EXAMINATION: VITAL SIGNS: Temperature is 36.5, heart rate 71, blood pressure 143/88. GENERAL: The patient is in bed, in minimal discomfort. He denies any current nausea or vomiting. He is cooperative. EYES: Nonicteric. NECK: No lymphadenopathy. HEART: Regular. LUNGS: Clear. BACK: Nontender. ABDOMEN: Soft, nontender with positive bowel sounds. No obvious hernias. EXTREMITIES: No edema or cyanosis. NEUROLOGIC: The patient appears to be neurologically intact without any deficits. PSYCHOLOGICAL: The patient is coherent, cooperative, appears to answer questions fully. 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 There is dilation of the small bowel with transition into the mid to distal small bowel consistent with small bowel obstruction. Creatinine of 0.9. White blood cell count of 8.3, hemoglobin of 16.2. ASSESSMENT AND PLAN 1. Abdominal pain with CT scan findings of his abdomen and pelvis consistent with partial small-bowel obstruction. I would recommend the patient be admitted to the hospital for observation to see if it will resolve with medical therapy or if he would need surgical intervention. 2. Asthma, controlled with inhalers. PLAN 1. The patient will be admitted to observation. 2. Keep n.p.o. 3. IV fluids. 4. IV antibiotics. 5. Acute abdominal series in the a.m. 6. Followup exam of his abdomen. TD: 03/27/2017 10:39
== END 2017-03-13 16:40 | disposition home or self-care (01) ==
LOC: ED 15:31 → OBS 18:31
PROVIDERS: ADMIT Surgery; ATTEND Surgery
DX: R10.10 Upper abdominal pain, unspecified (principal); R14.0 Abdominal distension (gaseous); K56.609 Unspecified intestinal obstruction, unspecified as to partial versus complete obstruction; K59.00 Constipation, unspecified; K80.20 Calculus of gallbladder without cholecystitis without obstruction; K57.30 Diverticulosis of large intestine without perforation or abscess without bleeding; K76.0 Fatty (change of) liver, not elsewhere classified; I71.4 Abdominal aortic aneurysm, without rupture; J45.909 Unspecified asthma, uncomplicated; Z86.718 Personal history of other venous thrombosis and embolism
CPT/HCPCS: 36415; 74022; 74174; 76705; 80053; 83690; 85025; 96361; 96372; 96374; 96375; 99283; 99284; A9270; G0378; J1170; J2270; Q9967